=== PATIENT | male | born 1990 | race Caucasian/White ===

== ENCOUNTER 2016-06-13 | Outpatient (CLI) | payer MEDICAID | END 2016-06-13 16:43 | disposition critical access hospital (66) | CPT/HCPCS: A0425; A0429 ==

== ENCOUNTER 2016-06-13 17:03 | Emergency (ER) | payer MEDICAID ==
[2016-06-13] MEDS ORDERED: SODIUM CHLORIDE 0.9% 1,000 ML IV ONE ×2 (17:13)
== END 2016-06-13 18:38 | disposition home or self-care (01) ==
DX: R42 Dizziness and giddiness (principal); T41.3X5A Adverse effect of local anesthetics, initial encounter; G89.29 Other chronic pain; R51 Headache; M54.9 Dorsalgia, unspecified

== ENCOUNTER 2016-07-23 11:08 | Outpatient (CLI) | payer MEDICAID | END 2016-07-23 11:09 | disposition critical access hospital (66) | DX: R25.9 Unspecified abnormal involuntary movements (principal); R51 Headache | CPT/HCPCS: A0425; A0429 ==

== ENCOUNTER 2016-07-23 12:06 | Emergency (ER) | payer MEDICAID ==
[2016-07-23] MEDS ORDERED: KETOROLAC 60 MG/2 ML VIAL IVP STA (12:11)
[2016-07-23] MEDS ORDERED: KETOROLAC 30 MG/ML VIAL ONE (12:16)
== END 2016-07-23 13:23 | disposition home or self-care (01) ==
DX: S06.0X1A Concussion with loss of consciousness of 30 minutes or less, initial encounter (principal); S16.1XXA Strain of muscle, fascia and tendon at neck level, initial encounter; W18.39XA Other fall on same level, initial encounter; Y93.01 Activity, walking, marching and hiking; G40.909 Epilepsy, unspecified, not intractable, without status epilepticus

== ENCOUNTER 2016-09-11 09:25 | Outpatient (CLI) | payer MEDICAID, OTHER | END 2016-09-11 09:26 | disposition home or self-care (01) | DX: G40.111 Localization-related (focal) (partial) symptomatic epilepsy and epileptic syndromes with simple partial seizures, intractable, with status epilepticus (principal) ==

== ENCOUNTER 2016-10-15 07:35 | Outpatient (CLI) | payer MEDICAID, OTHER | END 2016-10-15 07:36 | disposition home or self-care (01) | LOC: LAB.R 07:35 | PROVIDERS: ATTEND Emergency Medicine | DX: G40.909 Epilepsy, unspecified, not intractable, without status epilepticus (principal) | CPT/HCPCS: 80164 ==